=== PATIENT | female | born 1980 | race Caucasian/White ===

== ENCOUNTER → 2020-04-29 | Outpatient (CLI) | payer BC, OTHER ==
[2020-05-01 07:09] LABS: VITAMIN D, 25-HYDROXY 14.4 ng/mL (30.0-100.0)
[2020-05-01 10:10] LABS: PROGESTERONE <0.1 ng/mL (.)
== END ==
LOC: LAB 17:51
DX: N92.6 Irregular menstruation, unspecified (principal)
CPT/HCPCS: 83036; 84144; 84443

== ENCOUNTER → 2020-11-22 | Outpatient (CLI) | payer BC | LOC: LAB 17:50 | DX: N92.6 Irregular menstruation, unspecified (principal) | CPT/HCPCS: 82670; 83001; 83520 ==

== ENCOUNTER → 2020-12-12 | Outpatient (CLI) | payer BC | LOC: LAB 18:12 | DX: N92.6 Irregular menstruation, unspecified (principal) | CPT/HCPCS: 36415; 84144; 84702 ==

== ENCOUNTER → 2021-02-09 | Outpatient (CLI) | payer BC | LOC: LAB 08:09 | DX: N92.6 Irregular menstruation, unspecified (principal) | CPT/HCPCS: 36415; 84144; 84702 ==

== ENCOUNTER → 2021-02-13 | Outpatient (CLI) | payer BC | LOC: LAB 09:25 | DX: N92.6 Irregular menstruation, unspecified (principal) | CPT/HCPCS: 36415; 84144; 84702 ==

== ENCOUNTER → 2021-02-20 | Outpatient (CLI) | payer BC | LOC: LAB 08:40 | DX: N92.6 Irregular menstruation, unspecified (principal) | CPT/HCPCS: 36415; 84144; 84702 ==

== ENCOUNTER → 2021-02-27 | Outpatient (CLI) | payer BC ==
[2021-02-28 08:14] LABS: ESTRADIOL <5.0 pg/mL (.); PROGESTERONE 0.1 ng/mL (.)
== END ==
LOC: LAB 11:39
PROVIDERS: Obstetrics & Gynecology Reproductive Endocrinology
DX: N92.6 Irregular menstruation, unspecified (principal)
CPT/HCPCS: 36415; 82670; 84144

== ENCOUNTER → 2021-04-03 | Outpatient (CLI) | payer BC | LOC: LAB 17:45 | DX: N92.6 Irregular menstruation, unspecified (principal) | CPT/HCPCS: 36415; 82670; 83001; 83520; 84144; 84702 ==

== ENCOUNTER → 2021-05-31 | Outpatient (CLI) | payer BC | LOC: LAB 08:54 | DX: N92.6 Irregular menstruation, unspecified (principal) | CPT/HCPCS: 36415; 84144 ==